=== PATIENT | female | born 1950 | race Caucasian/White ===

== ENCOUNTER 2019-05-10 11:01 | Inpatient (IN) ==
[~2019-05-10 11:01] MED LIST: ASPIRIN 325 MG TABLET PO ONE; DIAZEPAM 5 MG TABLET PO ONE; MAGNESIUM SULF RIDER 2 GM in PREMIX 1 EACH IV PRN; POTASSIUM CHLORIDE RIDER 10 MEQ in PREMIX 1 EACH IV PRN; diphenhydrAMINE CAP 25 MG CAPSULE PO ONE
[2019-05-10] MEDS: SODIUM CHLORIDE 0.9% 1,000 ML IV SCH ×3 (11:41→22:32)
[2019-05-10 11:59] LABS: Basophils # 0.1 10*3/uL (0.0-0.2); Basophils % 0.9 % (0.0-0.8); Eosinophils # 0.3 10*3/uL (0.0-0.87); Eosinophils % 4.4 % (0.00-10.9); Hematocrit 39.6 VOL% (35.7-47.0); Hemoglobin 12.7 GM/DL (12.0-16.0); Immature Granulocytes % 0.5 %; Immature Granulocytes Absolute 0.04 #; Lymphocytes # 2.4 10*3/uL (1.4-4.0); Lymphocytes % 30.4 % (21.3-54.2); Mean Corpuscular HGB Conc 32.1 GM/DL (32-36); Mean Corpuscular Volume 86.5 FL (87-102); Mean Platelet Volume 11.9 FL (9.6-12.0); Monocytes % 6.5 % (1.7-12.7); Neutrophils % 57.3 % (38.7-73.9); Platelet Count 190 T/CUMM (130-400); Red Blood Count 4.58 MC/CUMM (3.8-5.5); Red Cell Distribution Width 13.7 % (9.3-17.3); White Blood Count 7.8 T/CUMM (4-12)
[2019-05-10 12:06] LABS: INR 0.9; PT Patient Result 10.2 SECS (9.6-12.2); Partial Thromboplastin Time 25.7 SECS (20.8-36.0)
[2019-05-10] MEDS ORDERED: ASPIRIN 325 MG TABLET ONE (12:07)
[2019-05-10] MEDS ORDERED: DIAZEPAM 5 MG TABLET ONE (12:07)
[2019-05-10] MEDS ORDERED: diphenhydrAMINE CAP 25 MG CAPSULE ONE (12:08)
[2019-05-10] MEDS ORDERED: NITROGLYCERIN DRIP 50 MG/250 ML BOTTLE IV ONE ×2 (12:12→13:03)
[2019-05-10] MEDS ORDERED: LIDOCAINE 1% 20 ML VIAL ONE (12:12)
[2019-05-10] MEDS ORDERED: VERAPAMIL 5 MG/2 ML VIAL ONE (12:13)
[2019-05-10] MEDS ORDERED: MIDAZOLAM 2 MG/2 ML VIAL ONE (12:39)
[2019-05-10] MEDS ORDERED: fentaNYL 100 MCG/2 ML VIAL ONE (12:39)
[2019-05-10 12:59] LABS: Alanine Aminotransferase 45 U/L (13-56); Albumin 3.5 G/DL (3.4-5.0); Alkaline Phosphatase 79 U/L (45-117); Aspartate Amino Transferase 37 U/L (0-37); Bilirubin,Total < 0.39 MG/DL (0.2-1.0); Blood Urea Nitrogen 14 MG/DL (7-18); Calcium 9.1 MG/DL (8.5-10.1); Estimated Glom Filtration Rate 64 ML/MIN; Glucose 330 MG/DL (74-106); Osmolality,Calculated 288.7 MOS/KG (273-304); Total Protein 7.6 G/DL (6.4-8.3)
[2019-05-10] MEDS ORDERED: DEXTROSE 50% 25 GM/50 ML VIAL IV PRN (13:25)
[2019-05-10] MEDS ORDERED: GLUCAGON 1 MG VIAL IM PRN (13:25)
[2019-05-10] MEDS ORDERED: INFLUENZA VIRUS VACCINE 0.5 ML SYRINGE IM ONE (16:06)
[2019-05-10] MEDS ORDERED: MAGNESIUM HYDROXIDE SUSP 30 ML UDCUP PO PRN (16:38)
[2019-05-10] MEDS ORDERED: diphenhydrAMINE CAP 25 MG CAPSULE PO PRN (16:38)
[2019-05-10] MEDS ORDERED: NITROGLYCERIN SL 0.4 MG TABLET SL PRN (16:38)
[2019-05-10] MEDS ORDERED: ACETAMINOPHEN 325 MG TABLET PO PRN (16:45)
[2019-05-10] MEDS: INSULIN REGULAR 100 UNIT/ML SUBCUT SCH ×2 (17:50→21:01)
[2019-05-10] MEDS: CEFUROXIME 250 MG TABLET PO SCH (20:58)
[2019-05-10] MEDS: GLIMEPIRIDE 4 MG TABLET PO SCH (20:59)
[2019-05-10] MEDS: GABAPENTIN 300 MG CAPSULE PO SCH (20:59)
[2019-05-10] MEDS ORDERED: INSULIN NPH 100 UNIT/ML SUBCUT SCH (21:00)
[2019-05-11] MEDS: SODIUM CHLORIDE 0.9% 1,000 ML IV SCH ×5 (03:15→22:30)
[2019-05-11 05:41] LABS: Basophils # 0.1 10*3/uL (0.0-0.2); Basophils % 1.2 % (0.0-0.8); Eosinophils # 0.4 10*3/uL (0.0-0.87); Eosinophils % 4.8 % (0.00-10.9); Hematocrit 31.4 VOL% (35.7-47.0); Hemoglobin 10.1 GM/DL (12.0-16.0); Immature Granulocytes % 0.7 %; Immature Granulocytes Absolute 0.06 #; Lymphocytes # 2.6 10*3/uL (1.4-4.0); Lymphocytes % 30.8 % (21.3-54.2); Mean Corpuscular HGB Conc 32.2 GM/DL (32-36); Mean Corpuscular Volume 87.2 FL (87-102); Monocytes % 7.7 % (1.7-12.7); Neutrophils % 54.8 % (38.7-73.9); Platelet Count 178 T/CUMM (130-400); Red Cell Distribution Width 13.9 % (9.3-17.3); White Blood Count 8.5 T/CUMM (4-12)
[2019-05-11 06:03] LABS: Calcium 7.5 MG/DL (8.5-10.1); Osmolality,Calculated 285.1 MOS/KG (273-304)
[2019-05-11] MEDS: INSULIN REGULAR 100 UNIT/ML SUBCUT SCH ×4 (08:00→20:56)
[2019-05-11 08:43] LABS: Risk Ratio 5.75; VLDL CHOLESTEROL 40.6 MG/DL
[2019-05-11] MEDS ORDERED: CALCIUM (CARBONATE)/VITAMIN D 600 MG-400 UNIT TABLET PO SCH (09:00)
[2019-05-11] MEDS ORDERED: INSULIN NPH 100 UNIT/ML SUBCUT SCH (09:00)
[2019-05-11] MEDS ORDERED: SIMVASTATIN 10 MG TABLET PO SCH (09:00)
[2019-05-11] MEDS: METOPROLOL SUCCINATE XL 25 MG TABLET PO SCH (09:19)
[2019-05-11] MEDS: GABAPENTIN 300 MG CAPSULE PO SCH ×3 (09:19→20:56)
[2019-05-11] MEDS: LORATADINE 10 MG TABLET PO SCH (09:20)
[2019-05-11] MEDS: POTASSIUM CHLORIDE 10 MEQ TABLET PO SCH (09:20)
[2019-05-11] MEDS: MAGNESIUM OXIDE 400 MG TABLET PO SCH (09:20)
[2019-05-11] MEDS: SERTRALINE 50 MG TABLET PO SCH (09:20)
[2019-05-11] MEDS: CEFUROXIME 250 MG TABLET PO SCH ×2 (09:20→20:56)
[2019-05-11] MEDS: ASPIRIN CHEW 81 MG TABLET PO SCH (09:20)
[2019-05-11] MEDS: GLIMEPIRIDE 4 MG TABLET PO SCH ×2 (09:20→20:56)
[2019-05-11] MEDS: amLODIPine 10 MG TABLET PO SCH (09:20)
[2019-05-11] MEDS: FUROSEMIDE 40 MG TABLET PO SCH (09:21)
[2019-05-11 13:25] LABS: Hemoglobin 11.1 GM/DL (12.0-16.0)
[2019-05-11] MEDS ORDERED: THROMBIN TOPICAL (RECOMBINANT) 5,000 UNIT VIAL TOP ONE ×2 (14:39→14:40)
[2019-05-11] MEDS: ATORVASTATIN 80 MG TABLET PO SCH (20:55)
[2019-05-11] MEDS: INSULIN NPH 100 UNIT/ML SUBCUT SCH (20:56)
[2019-05-11] MEDS: CALCIUM (CARBONATE)/VITAMIN D 600 MG-400 UNIT TABLET PO SCH (21:05)
[2019-05-12 04:39] LABS: Calcium 9.7 MG/DL (8.5-10.1); Osmolality,Calculated 284.1 MOS/KG (273-304)
[2019-05-12] MEDS ORDERED: DEXTROSE 50% 25 GM/50 ML VIAL IV PRN (06:10)
[2019-05-12] MEDS ORDERED: GLUCAGON 1 MG VIAL IM PRN (06:10)
[2019-05-12 06:51] LABS: Basophils # 0.1 10*3/uL (0.0-0.2); Basophils % 0.7 % (0.0-0.8); Eosinophils # 0.5 10*3/uL (0.0-0.87); Eosinophils % 4.3 % (0.00-10.9); Hematocrit 30.3 VOL% (35.7-47.0); Hemoglobin 9.5 GM/DL (12.0-16.0); Immature Granulocytes % 0.8 %; Immature Granulocytes Absolute 0.09 #; Lymphocytes # 3.1 10*3/uL (1.4-4.0); Lymphocytes % 27.8 % (21.3-54.2); Mean Corpuscular HGB Conc 31.4 GM/DL (32-36); Mean Corpuscular Volume 87.3 FL (87-102); Monocytes % 9.3 % (1.7-12.7); Neutrophils % 57.1 % (38.7-73.9); Platelet Count 189 T/CUMM (130-400); Red Blood Count 3.47 MC/CUMM (3.8-5.5); Red Cell Distribution Width 14.2 % (9.3-17.3)
[2019-05-12 06:53] LABS: ABG Base Excess -0.7 MMOL/L (-2.5-2.5); ABG HCO3 23.8 MMOL/L (20-26); ABG Oxygen Saturation 95.3 % (95-100); ABG PCO2 36.2 MM HG (35-48); ABG PH 7.418 (7.35-7.45); ABG PO2 69.3 MM HG (80-95); ABG TCO2 21.3 MMOL/L (23-27); Allen Test Positive; Pt O2 Delivery Device Room Air
[2019-05-12 07:17] LABS: Alanine Aminotransferase 34 U/L (13-56); Albumin 2.6 G/DL (3.4-5.0); Alkaline Phosphatase 61 U/L (45-117); Aspartate Amino Transferase 36 U/L (0-37); Bilirubin,Total < 0.39 MG/DL (0.2-1.0); Blood Urea Nitrogen 11 MG/DL (7-18); Calcium 8.7 MG/DL (8.5-10.1); Estimated Glom Filtration Rate 87 ML/MIN; Glucose 158 MG/DL (74-106); Osmolality,Calculated 278.5 MOS/KG (273-304); Total Protein 5.9 G/DL (6.4-8.3)
[2019-05-12] MEDS: INSULIN NPH 100 UNIT/ML SUBCUT SCH ×2 (09:42→21:58)
[2019-05-12] MEDS: INSULIN REGULAR 100 UNIT/ML SUBCUT SCH ×4 (09:46→21:58)
[2019-05-12] MEDS: GABAPENTIN 300 MG CAPSULE PO SCH ×3 (09:47→21:45)
[2019-05-12] MEDS: amLODIPine 10 MG TABLET PO SCH (09:47)
[2019-05-12] MEDS: METOPROLOL SUCCINATE XL 25 MG TABLET PO SCH (09:47)
[2019-05-12] MEDS: FUROSEMIDE 40 MG TABLET PO SCH (09:47)
[2019-05-12] MEDS: ASPIRIN CHEW 81 MG TABLET PO SCH (09:48)
[2019-05-12] MEDS: SERTRALINE 50 MG TABLET PO SCH (09:48)
[2019-05-12] MEDS: POTASSIUM CHLORIDE 10 MEQ TABLET PO SCH (09:48)
[2019-05-12] MEDS: CEFUROXIME 250 MG TABLET PO SCH ×2 (09:50→21:49)
[2019-05-12] MEDS: LORATADINE 10 MG TABLET PO SCH (09:50)
[2019-05-12] MEDS: MAGNESIUM OXIDE 400 MG TABLET PO SCH (09:50)
[2019-05-12] MEDS: GLIMEPIRIDE 4 MG TABLET PO SCH ×2 (09:50→21:44)
[2019-05-12] MEDS: CALCIUM (CARBONATE)/VITAMIN D 600 MG-400 UNIT TABLET PO SCH ×2 (09:53→21:50)
[2019-05-12] MEDS: CHLORHEXIDINE 4% SOLN 118 ML BOTTLE TOP SCH ×4 (10:52→21:51)
[2019-05-12] MEDS: SODIUM CHLORIDE 0.9% 1,000 ML IV SCH ×2 (11:46→11:47)
[2019-05-12] MEDS: CHLORHEXIDINE 0.12% ORAL RINSE 60 ML BOTTLE SWISH/SPIT SCH ×2 (11:55→21:52)
[2019-05-12 15:36] LABS: Apearance,Urine CLEAR (Clear); Bilirubin,Urine Negative (Negative); Blood, Urine Negative (Negative); Glucose,Urine (UA) >=500 mg/dL (Negative); Ketones,Urine Negative (Negative); Nitrite,Urine Negative (Negative); Protein,Urine Negative; RBC,Urine 3 /HPF (0-4); Squamous Epithelial Cell,Urine Occasional /HPF (0-10); Urine Color Straw (Yellow); Urine Specific Gravity 1.008 (1.001-1.035); Urine Urobilinogen < 2.0 EU/DL (0.2-1.0); WBC,Urine 48 /HPF (0-6)
[2019-05-12] MEDS: ATORVASTATIN 80 MG TABLET PO SCH (21:45)
[2019-05-13] MEDS ORDERED: PAPAVERINE 60 MG/2 ML VIAL ONE (04:22)
[2019-05-13] MEDS ORDERED: VANCOMYCIN 1,000 MG VIAL ONE (04:23)
[2019-05-13] MEDS ORDERED: DIAZEPAM 5 MG TABLET PO ONE (05:30)
[2019-05-13] MEDS ORDERED: ALBUTEROL 2.5 MG/3 ML NEB RESP TX ONE (05:30)
[2019-05-13] MEDS ORDERED: FAMOTIDINE 20 MG TABLET PO ONE (05:30)
[2019-05-13] MEDS ORDERED: LACTATED RINGERS 1,000 ML IV SCH (05:30)
[2019-05-13] MEDS ORDERED: CALCIUM CHLORIDE 1,000 MG/10 ML VIAL IV ONE (05:53)
[2019-05-13] MEDS ORDERED: MIDAZOLAM 10 MG/2 ML VIAL ONE (05:53)
[2019-05-13] MEDS ORDERED: LIDOCAINE 2% 5 ML VIAL ONE ×2 (05:53→12:06)
[2019-05-13] MEDS ORDERED: SUFentanil 250 MCG/5 ML AMP ONE (05:53)
[2019-05-13] MEDS ORDERED: HEPARIN/NACL 0.9% 2 UNITS/ML 500 ML IV ONE (05:53)
[2019-05-13] MEDS ORDERED: AMINOCAPROIC ACID 5,000 MG/20 ML VIAL ONE (05:54)
[2019-05-13] MEDS ORDERED: ETOMIDATE 40 MG/20 ML VIAL IV ONE (05:54)
[2019-05-13] MEDS ORDERED: VECURONIUM 10 MG VIAL IV ONE (05:54)
[2019-05-13] MEDS ORDERED: SODIUM CHLORIDE 0.9% 250 ML IV ONE (05:54)
[2019-05-13] MEDS ORDERED: NITROGLYCERIN DRIP 50 MG/250 ML BOTTLE IV ONE (05:54)
[2019-05-13] MEDS ORDERED: ePHEDrine 50 MG/ML AMP ONE (05:54)
[2019-05-13] MEDS ORDERED: SODIUM CHLORIDE 0.9% 1,000 ML IV ONE (05:54)
[2019-05-13] MEDS ORDERED: LACTATED RINGERS 1,000 ML IV ONE (05:54)
[2019-05-13] MEDS ORDERED: CEFUROXIME INJ 1,500 MG in SODIUM CHLORIDE 0.9% 100 ML IV ONE (06:00)
[2019-05-13] MEDS: SODIUM CHLORIDE 0.9% 1,000 ML IV SCH (07:00)
[2019-05-13] MEDS: INSULIN REGULAR 100 UNIT/ML SUBCUT SCH ×2 (07:30→11:30)
[2019-05-13 07:53] LABS: ABG Base Excess -1.5 MMOL/L (-2.5-2.5); ABG HCO3 23.2 MMOL/L (20-26); ABG PH 7.393 (7.35-7.45); ABG TCO2 21.1 MMOL/L (23-27); Glucose Heart Surgery 249 MG/DL (74-106); Hematocrit Heart Surgery 30.9 PERCENT (37-47); Ionized Calcium Arterial 1.17 MMOL/L (1.21-1.46); PH Patient Temp Arterial 7.393; Patient Temperature 37 CELCIUS; Potassium Heart/CVR 3.7 MMOL/L (3.5-5.1); Sodium Heart/CVR 138 MMOL/L (135-145)
[2019-05-13] MEDS ORDERED: VANCOMYCIN 500 MG VIAL ONE (09:09)
[2019-05-13] MEDS ORDERED: NITROPRUSSIDE 50 MG/2 ML VIAL ONE (09:34)
[2019-05-13] MEDS ORDERED: CALCIUM CHLORIDE 1,000 MG/10 ML SYRINGE IV ONE (09:35)
[2019-05-13] MEDS ORDERED: SODIUM BICARBONATE 50 MEQ/50 ML VIAL IV ONE ×2 (09:35→12:06)
[2019-05-13] MEDS ORDERED: POTASSIUM CHLORIDE RIDER 100 ML IV ONE (09:35)
[2019-05-13] MEDS ORDERED: PHENYLEPHRINE DRIP 40 MG/250 ML PREMIX IV ONE (09:35)
[2019-05-13 10:01] LABS: Apearance,Urine CLEAR (Clear); Bilirubin,Urine Negative (Negative); Blood, Urine Small mg/dL (Negative); Glucose,Urine (UA) 50 mg/dL (Negative); Hyaline Casts,Urine 1 /LPF (0-3); Ketones,Urine Negative (Negative); Mucus,Urine Occasional /LPF (Occasional); Nitrite,Urine Negative (Negative); Protein,Urine Negative; RBC,Urine 1 /HPF (0-4); Squamous Epithelial Cell,Urine Occasional /HPF (0-10); Urine Color Yellow (Yellow); Urine Specific Gravity 1.011 (1.001-1.035); Urine Urobilinogen < 2.0 EU/DL (0.2-1.0); WBC,Urine <1 /HPF (0-6)
[2019-05-13] MEDS: GLIMEPIRIDE 4 MG TABLET PO SCH (10:18)
[2019-05-13] MEDS: CALCIUM (CARBONATE)/VITAMIN D 600 MG-400 UNIT TABLET PO SCH (10:19)
[2019-05-13] MEDS: CHLORHEXIDINE 4% SOLN 118 ML BOTTLE TOP SCH (10:19)
[2019-05-13] MEDS: ASPIRIN CHEW 81 MG TABLET PO SCH (10:19)
[2019-05-13] MEDS: CEFUROXIME 250 MG TABLET PO SCH (10:19)
[2019-05-13] MEDS: POTASSIUM CHLORIDE 10 MEQ TABLET PO SCH (10:19)
[2019-05-13] MEDS: LORATADINE 10 MG TABLET PO SCH (10:19)
[2019-05-13] MEDS: INSULIN NPH 100 UNIT/ML SUBCUT SCH (10:19)
[2019-05-13] MEDS: CHLORHEXIDINE 0.12% ORAL RINSE 60 ML BOTTLE SWISH/SPIT SCH ×2 (10:20→22:18)
[2019-05-13] MEDS: amLODIPine 10 MG TABLET PO SCH (10:20)
[2019-05-13] MEDS: FUROSEMIDE 40 MG TABLET PO SCH (10:20)
[2019-05-13] MEDS: GABAPENTIN 300 MG CAPSULE PO SCH (10:20)
[2019-05-13] MEDS: METOPROLOL SUCCINATE XL 25 MG TABLET PO SCH (10:20)
[2019-05-13] MEDS: MAGNESIUM OXIDE 400 MG TABLET PO SCH (10:20)
[2019-05-13] MEDS: SERTRALINE 50 MG TABLET PO SCH (10:20)
[2019-05-13 10:21] LABS: Hematocrit Heart Surgery 36.9 PERCENT (37-47); PCO2 Patient Temp Venous 39.3 MM HG; PH Patient Temp Venous 7.388; PO2 Patient Temp Venous 40.1 MM HG; Potassium Heart/CVR 4.3 MMOL/L (3.5-5.1); VBG Base Excess -1.1 MEQ/L (0-4); VBG HCO3 23.1 MEQ/L (24-28); VBG Oxygen Saturation 74.7 %; VBG PCO2 39.3 MMHG (41-51); VBG PH 7.388; VBG PO2 40.1 MMHG (17-40)
[2019-05-13] MEDS ORDERED: PHENYLEPHRINE DRIP 20 MG/250 ML PREMIX IV ONE (10:28)
[2019-05-13] MEDS ORDERED: diphenhydrAMINE 50 MG/1 ML VIAL ONE (10:28)
[2019-05-13] MEDS ORDERED: FAMOTIDINE 20 MG/2 ML VIAL IV ONE (10:29)
[2019-05-13 10:36] LABS: PCO2 Patient Temp Venous 28.9 MM HG; PH Patient Temp Venous 7.489; PO2 Patient Temp Venous 27.5 MM HG; Potassium Heart/CVR 4.1 MMOL/L (3.5-5.1); VBG Base Excess -0.8 MEQ/L (0-4); VBG HCO3 23.5 MEQ/L (24-28); VBG Oxygen Saturation 72.4 %; VBG PCO2 35.1 MMHG (41-51); VBG PH 7.429; VBG PO2 36.4 MMHG (17-40)
[2019-05-13 10:37] LABS: Hematocrit Heart Surgery 16.7 PERCENT (37-47); Hemoglobin Heart Surgery 5.3 G/DL (12.0-16.0)
[2019-05-13 11:10] LABS: Hemoglobin Heart Surgery 8.6 G/DL (12.0-16.0); PCO2 Patient Temp Venous 36.1 MM HG; PH Patient Temp Venous 7.365; PO2 Patient Temp Venous 38.2 MM HG; Potassium Heart/CVR 4.7 MMOL/L (3.5-5.1); VBG Base Excess -4.7 MEQ/L (0-4); VBG HCO3 20.4 MEQ/L (24-28); VBG PCO2 37.7 MMHG (41-51); VBG PH 7.351
[2019-05-13] MEDS ORDERED: ALBUMIN 25% 25 GM/100 ML VIAL IV ONE (12:06)
[2019-05-13] MEDS ORDERED: DEXTROSE 5% KCL 20 MEQ 20 MEQ/1,000 ML BAG IV ONE (12:06)
[2019-05-13] MEDS ORDERED: MANNITOL 100 GM/500 ML BAG IV ONE (12:06)
[2019-05-13] MEDS ORDERED: PROTAMINE SULFATE 250 MG/25 ML VIAL IV ONE (12:06)
[2019-05-13] MEDS ORDERED: MAGNESIUM SULFATE 5 GM/10 ML VIAL IV ONE (12:06)
[2019-05-13] MEDS ORDERED: methylPREDNISolone SOD SUC 1,000 MG/8 ML VIAL ONE (12:07)
[2019-05-13] MEDS ORDERED: PROTAMINE SULFATE 50 MG/5 ML VIAL IV ONE (12:07)
[2019-05-13] MEDS ORDERED: HEPARIN 10,000 UNIT/10 ML VIAL ONE (12:07)
[2019-05-13] MEDS ORDERED: FUROSEMIDE 20 MG/2 ML VIAL ONE (12:07)
[2019-05-13 12:09] LABS: ABG Base Excess -3.5 MMOL/L (-2.5-2.5); ABG HCO3 21.8 MMOL/L (20-26); ABG Oxygen Saturation 98.1 % (95-100); ABG PCO2 40.4 MM HG (35-48); ABG PO2 135.1 MM HG (80-95); Glucose Heart Surgery 393 MG/DL (74-106); Hemoglobin Heart Surgery 9.8 G/DL (12.0-16.0); Ionized Calcium Arterial 1.19 MMOL/L (1.21-1.46); Potassium Heart/CVR 3.2 MMOL/L (3.5-5.1); Sodium Heart/CVR 134 MMOL/L (135-145)
[2019-05-13] MEDS ORDERED: DOBUTamine 500 MG/250 ML PREMIX IV ONE (12:57)
[2019-05-13 13:03] LABS: PCO2 Patient Temp Arterial 40.4 MMHG; PO2 Patient Temp Arterial 135.1 MM HG; Patient Temperature 37 CELCIUS
[2019-05-13] MEDS: PHENYLEPHRINE DRIP 40 MG/250 ML PREMIX IV PRN ×2 (13:20→23:08)
[2019-05-13] MEDS ORDERED: MIDAZOLAM 2 MG/2 ML VIAL IV PRN (13:27)
[2019-05-13] MEDS ORDERED: MORPHINE 10 MG/1 ML VIAL IV PRN (13:27)
[2019-05-13] MEDS ORDERED: VECURONIUM 10 MG VIAL IV PRN ×2 (13:27)
[2019-05-13] MEDS ORDERED: ACETAMINOPHEN 650 MG SUPP RECTAL PRN (13:27)
[2019-05-13] MEDS ORDERED: POTASSIUM CHLORIDE RIDER 10 MEQ in PREMIX 1 EACH IV PRN (13:27)
[2019-05-13] MEDS ORDERED: DEXTROSE 10% 250 ML BAG IV PRN ×2 (13:27)
[2019-05-13] MEDS ORDERED: MIDAZOLAM 10 MG/2 ML VIAL IV PRN (13:27)
[2019-05-13] MEDS ORDERED: MAGNESIUM SULF RIDER 4 GM in PREMIX 1 EACH IV PRN (13:27)
[2019-05-13] MEDS ORDERED: MAGNESIUM SULF RIDER 2 GM in PREMIX 1 EACH IV PRN (13:27)
[2019-05-13] MEDS ORDERED: CALCIUM CHLORIDE 1,000 MG/10 ML SYRINGE IV PRN (13:27)
[2019-05-13] MEDS ORDERED: NITROPRUSSIDE 100 MG in DEXTROSE 5% 250 ML IV PRN (13:27)
[2019-05-13] MEDS ORDERED: ONDANSETRON 4 MG/2 ML VIAL IV PRN (13:27)
[2019-05-13] MEDS ORDERED: INSULIN REGULAR 100 UNIT/ML IV ONE (13:27)
[2019-05-13] MEDS ORDERED: SEVOFLURANE 1 UNIT/15 MINUTE INH ONE (13:30)
[2019-05-13] MEDS ORDERED: SODIUM CHLORIDE 0.45% 1,000 ML IV SCH ×2 (13:30)
[2019-05-13] MEDS ORDERED: SODIUM CHLORIDE 0.9% 100 ML IV ONE (13:30)
[2019-05-13] MEDS ORDERED: ESMOLOL 100 MG/10 ML VIAL IV ONE (13:30)
[2019-05-13 13:39] LABS: ABG Base Excess -0.8 MMOL/L (-2.5-2.5); ABG HCO3 24.7 MMOL/L (20-26); ABG PCO2 44.8 MM HG (35-48); ABG PO2 64.5 MM HG (80-95); ABG TCO2 26.1 MMOL/L (23-27); Glucose Heart Surgery 315 MG/DL (74-106); Hemoglobin Heart Surgery 10.3 G/DL (12.0-16.0); Potassium Heart/CVR 3.3 MMOL/L (3.5-5.1)
[2019-05-13] MEDS: POTASSIUM CHLORIDE RIDER 20 MEQ in PREMIX 1 EACH IV PRN ×4 (13:40→17:17)
[2019-05-13 13:42] LABS: Basophils # 0.1 10*3/uL (0.0-0.2); Basophils % 0.4 % (0.0-0.8); Eosinophils # 0.2 10*3/uL (0.0-0.87); Eosinophils % 1.2 % (0.00-10.9); Hematocrit 28.9 VOL% (35.7-47.0); Hemoglobin 9.4 GM/DL (12.0-16.0); Immature Granulocytes % 1.5 %; Immature Granulocytes Absolute 0.27 #; Lymphocytes # 2.8 10*3/uL (1.4-4.0); Lymphocytes % 15.5 % (21.3-54.2); Mean Corpuscular HGB Conc 32.5 GM/DL (32-36); Mean Platelet Volume 11.4 FL (9.6-12.0); Monocytes % 9.3 % (1.7-12.7); Neutrophils % 72.1 % (38.7-73.9); Platelet Count 191 T/CUMM (130-400); Red Blood Count 3.36 MC/CUMM (3.8-5.5); Red Cell Distribution Width 14.3 % (9.3-17.3); White Blood Count 18.3 T/CUMM (4-12)
[2019-05-13] MEDS ORDERED: DOBUTamine 500 MG/250 ML PREMIX IV PRN (13:48)
[2019-05-13 13:50] LABS: INR 1.1; PT Patient Result 11.7 SECS (9.6-12.2); Partial Thromboplastin Time 25.7 SECS (20.8-36.0)
[2019-05-13] MEDS: KETOROLAC 30 MG/1 ML VIAL IV SCH ×2 (13:50→18:55)
[2019-05-13] MEDS: INSULIN REGULAR DRIP 100 ML IV SCH ×2 (13:55→23:15)
[2019-05-13 14:26] LABS: CKMB % 2.9 %
[2019-05-13 14:36] LABS: Troponin I 9.21 NG/ML (0.00-0.045)
[2019-05-13 14:37] LABS: Albumin 3.3 G/DL (3.4-5.0); Bilirubin,Total 1.1 MG/DL (0.2-1.0); Osmolality,Calculated 305.3 MOS/KG (273-304); Total Protein 5.7 G/DL (6.4-8.3)
[2019-05-13] MEDS: INSULIN REGULAR 100 UNIT/ML IV PRN ×2 (15:09→19:05)
[2019-05-13 15:10] LABS: ABG Base Excess -1.2 MMOL/L (-2.5-2.5); ABG HCO3 23.4 MMOL/L (20-26); ABG Oxygen Saturation 96.4 % (95-100); ABG PH 7.352 (7.35-7.45); ABG PO2 82.2 MM HG (80-95); ABG TCO2 22.5 MMOL/L (23-27); Glucose Heart Surgery 310 MG/DL (74-106); Hematocrit Heart Surgery 29.3 PERCENT (37-47); Hemoglobin Heart Surgery 9.5 G/DL (12.0-16.0); Potassium Heart/CVR 4.4 MMOL/L (3.5-5.1)
[2019-05-13] MEDS: ALBUMIN 5% 12.5 GM in PREMIX 1 EACH IV PRN ×3 (15:20→16:56)
[2019-05-13 16:50] LABS: ABG Base Excess -2.3 MMOL/L (-2.5-2.5); ABG HCO3 22.5 MMOL/L (20-26); ABG Oxygen Saturation 98.2 % (95-100); ABG PCO2 42.1 MM HG (35-48); ABG PH 7.349 (7.35-7.45); ABG PO2 99.1 MM HG (80-95); ABG TCO2 21.5 MMOL/L (23-27); Glucose Heart Surgery 267 MG/DL (74-106); Hematocrit Heart Surgery 27.4 PERCENT (37-47); Hemoglobin Heart Surgery 8.8 G/DL (12.0-16.0); Potassium Heart/CVR 4.1 MMOL/L (3.5-5.1)
[2019-05-13] MEDS: LACTATED RINGERS 250 ML IV PRN ×2 (18:00→18:15)
[2019-05-13] MEDS: MORPHINE 4 MG/1 ML VIAL IV PRN ×2 (18:08→22:06)
[2019-05-13] MEDS ORDERED: FUROSEMIDE 40 MG/4 ML VIAL IV PRN (18:34)
[2019-05-13 18:40] LABS: ABG Base Excess -2.9 MMOL/L (-2.5-2.5); ABG HCO3 21.9 MMOL/L (20-26); ABG Oxygen Saturation 95.5 % (95-100); ABG PCO2 42.4 MM HG (35-48); ABG PH 7.337 (7.35-7.45); ABG PO2 74.9 MM HG (80-95); Glucose Heart Surgery 243 MG/DL (74-106); Hematocrit Heart Surgery 29.4 PERCENT (37-47); Hemoglobin Heart Surgery 9.5 G/DL (12.0-16.0); Potassium Heart/CVR 4.5 MMOL/L (3.5-5.1)
[2019-05-13 21:17] LABS: ABG Base Excess -1.3 MMOL/L (-2.5-2.5); ABG HCO3 23.3 MMOL/L (20-26); ABG Oxygen Saturation 96.7 % (95-100); ABG PCO2 42.4 MM HG (35-48); ABG PH 7.363 (7.35-7.45); ABG PO2 83.3 MM HG (80-95); ABG TCO2 21.4 MMOL/L (23-27); Glucose Heart Surgery 192 MG/DL (74-106); Hematocrit Heart Surgery 37.1 PERCENT (37-47); Hemoglobin Heart Surgery 12.1 G/DL (12.0-16.0)
[2019-05-13 21:51] LABS: CKMB % 3.1 %
[2019-05-13 21:58] LABS: ABG Base Excess -1.1 MMOL/L (-2.5-2.5); ABG HCO3 23.5 MMOL/L (20-26); ABG PCO2 37.8 MM HG (35-48); ABG PH 7.399 (7.35-7.45); ABG PO2 91.2 MM HG (80-95); ABG TCO2 20.7 MMOL/L (23-27); Glucose Heart Surgery 172 MG/DL (74-106); Hematocrit Heart Surgery 36.8 PERCENT (37-47); Hemoglobin Heart Surgery 11.9 G/DL (12.0-16.0); Potassium Heart/CVR 3.7 MMOL/L (3.5-5.1)
[2019-05-13 21:58] LABS: Troponin I 11.5 NG/ML (0.00-0.045)
[2019-05-13] MEDS: CEFUROXIME INJ 1,500 MG in SYRINGE 1 EACH IV SCH (22:18)
[2019-05-14 00:55] LABS: ABG HCO3 24.4 MMOL/L (20-26); ABG Oxygen Saturation 96.8 % (95-100); ABG PCO2 36.6 MM HG (35-48); ABG PH 7.426 (7.35-7.45); ABG PO2 76.3 MM HG (80-95); ABG TCO2 21.3 MMOL/L (23-27); Glucose Heart Surgery 145 MG/DL (74-106); Hematocrit Heart Surgery 36.8 PERCENT (37-47); Potassium Heart/CVR 3.7 MMOL/L (3.5-5.1)
[2019-05-14] MEDS: KETOROLAC 30 MG/1 ML VIAL IV SCH ×5 (01:04→22:28)
[2019-05-14] MEDS: POTASSIUM CHLORIDE RIDER 20 MEQ in PREMIX 1 EACH IV PRN (01:04)
[2019-05-14 03:57] LABS: ABG Base Excess -0.1 MMOL/L (-2.5-2.5); ABG HCO3 24.3 MMOL/L (20-26); ABG Oxygen Saturation 94.7 % (95-100); ABG PCO2 36.9 MM HG (35-48); ABG PH 7.422 (7.35-7.45); ABG PO2 65.8 MM HG (80-95); ABG TCO2 21.4 MMOL/L (23-27); Glucose Heart Surgery 152 MG/DL (74-106); Hematocrit Heart Surgery 35.6 PERCENT (37-47); Hemoglobin Heart Surgery 11.6 G/DL (12.0-16.0)
[2019-05-14 04:02] LABS: Basophils # 0.1 10*3/uL (0.0-0.2); Basophils % 0.4 % (0.0-0.8); Hematocrit 33.3 VOL% (35.7-47.0); Hemoglobin 11.3 GM/DL (12.0-16.0); Immature Granulocytes % 0.7 %; Immature Granulocytes Absolute 0.11 #; Lymphocytes # 1.6 10*3/uL (1.4-4.0); Mean Corpuscular HGB Conc 33.9 GM/DL (32-36); Mean Corpuscular Volume 84.9 FL (87-102); Mean Platelet Volume 11.6 FL (9.6-12.0); Monocytes % 6.8 % (1.7-12.7); Neutrophils % 82.1 % (38.7-73.9); Platelet Count 118 T/CUMM (130-400); Red Blood Count 3.92 MC/CUMM (3.8-5.5); Red Cell Distribution Width 14.5 % (9.3-17.3)
[2019-05-14 05:47] LABS: Calcium 7.5 MG/DL (8.5-10.1); Osmolality,Calculated 286.8 MOS/KG (273-304)
[2019-05-14 07:51] LABS: CKMB % 3.3 %
[2019-05-14] MEDS ORDERED: INSULIN REGULAR 100 UNIT/ML SUBCUT SCH (08:00)
[2019-05-14] MEDS: CEFUROXIME INJ 1,500 MG in SYRINGE 1 EACH IV SCH (08:25)
[2019-05-14] MEDS: CHLORHEXIDINE 0.12% ORAL RINSE 60 ML BOTTLE SWISH/SPIT SCH ×2 (08:25→21:14)
[2019-05-14] MEDS ORDERED: FUROSEMIDE 40 MG/4 ML VIAL ONE (08:32)
[2019-05-14] MEDS ORDERED: CALCIUM CHLORIDE 1,000 MG/10 ML SYRINGE IV ONE (09:01)
[2019-05-14] MEDS ORDERED: PHENYLEPHRINE DRIP 40 MG/250 ML PREMIX IV ONE (09:01)
[2019-05-14] MEDS ORDERED: NITROPRUSSIDE 50 MG/2 ML VIAL ONE (09:01)
[2019-05-14] MEDS ORDERED: SODIUM BICARBONATE 50 MEQ/50 ML VIAL IV ONE (09:01)
[2019-05-14] MEDS ORDERED: POTASSIUM CHLORIDE RIDER 100 ML IV ONE (09:02)
[2019-05-14] MEDS ORDERED: ALBUMIN 5% 12.5 GM/250 ML VIAL IV ONE ×2 (09:02)
[2019-05-14] MEDS ORDERED: FUROSEMIDE 40 MG/4 ML VIAL IV ONE (10:00)
[2019-05-14] MEDS ORDERED: SODIUM CHLOR 0.45% KCL 20 MEQ 20 MEQ/1,000 ML BAG IV SCH (10:26)
[2019-05-14] MEDS ORDERED: ALUMINUM/MAGNES/SIMETH MAX STR 30 ML UDCUP PO PRN (10:26)
[2019-05-14] MEDS ORDERED: ACETAMINOPHEN 325 MG TABLET PO PRN (10:26)
[2019-05-14] MEDS ORDERED: ONDANSETRON 4 MG/2 ML VIAL IV PRN (10:26)
[2019-05-14] MEDS ORDERED: MAGNESIUM SULF RIDER 4 GM in PREMIX 1 EACH IV PRN (10:26)
[2019-05-14] MEDS ORDERED: DEXTROSE 10% 250 ML BAG IV PRN ×2 (10:26→19:55)
[2019-05-14] MEDS ORDERED: MAGNESIUM SULF RIDER 2 GM in PREMIX 1 EACH IV PRN (10:26)
[2019-05-14] MEDS ORDERED: GLUCAGON 1 MG VIAL IM PRN ×3 (10:26→19:55)
[2019-05-14] MEDS ORDERED: DEXTROSE 50% 25 GM/50 ML VIAL IV PRN (10:26)
[2019-05-14] MEDS: ASPIRIN EC 81 MG TABLET PO SCH (13:23)
[2019-05-14] MEDS: oxyCODONE/ACETAMINOPHEN 5-325 MG TABLET PO PRN (14:22)
[2019-05-14] MEDS: GABAPENTIN 300 MG CAPSULE PO SCH ×2 (14:22→21:14)
[2019-05-14] MEDS ORDERED: INSULIN REGULAR 100 UNIT/ML SUBCUT ONE (15:54)
[2019-05-14] MEDS ORDERED: LOVASTATIN 20 MG TABLET PO SCH (17:00)
[2019-05-14] MEDS: metFORMIN 500 MG TABLET PO SCH (18:59)
[2019-05-14] MEDS: GLIMEPIRIDE 4 MG TABLET PO SCH (18:59)
[2019-05-14] MEDS: INSULIN NPH 100 UNIT/ML SUBCUT SCH (21:02)
[2019-05-14] MEDS: INSULIN REGULAR 100 UNIT/ML SUBCUT SCH ×2 (21:08→23:26)
[2019-05-14] MEDS: ZALEPLON 5 MG CAPSULE PO PRN (21:14)
[2019-05-14] MEDS: SERTRALINE 25 MG TABLET PO SCH (21:14)
[2019-05-15] MEDS: KETOROLAC 30 MG/1 ML VIAL IV SCH ×4 (04:28→23:25)
[2019-05-15 04:30] LABS: Basophils % 0.2 % (0.0-0.8); Hematocrit 30.5 VOL% (35.7-47.0); Hemoglobin 9.9 GM/DL (12.0-16.0); Immature Granulocytes % 1.6 %; Immature Granulocytes Absolute 0.29 #; Mean Corpuscular HGB Conc 32.5 GM/DL (32-36); Mean Corpuscular Volume 89.2 FL (87-102); Mean Platelet Volume 12.3 FL (9.6-12.0); Monocytes % 10.8 % (1.7-12.7); Neutrophils % 76.4 % (38.7-73.9); Platelet Count 135 T/CUMM (130-400); Red Blood Count 3.42 MC/CUMM (3.8-5.5); Red Cell Distribution Width 15.4 % (9.3-17.3); White Blood Count 17.8 T/CUMM (4-12)
[2019-05-15 05:15] LABS: Albumin 2.9 G/DL (3.4-5.0); Bilirubin,Direct 0.2 MG/DL (0.0-0.20); Bilirubin,Indirect 0.5 MG/DL (0.0-1.0); Bilirubin,Total 0.7 MG/DL (0.2-1.0); CKMB % 1.6 %; Calcium 7.7 MG/DL (8.5-10.1); Osmolality,Calculated 293.4 MOS/KG (273-304); Total Protein 5.7 G/DL (6.4-8.3)
[2019-05-15 05:17] LABS: Troponin I 5.93 NG/ML (0.00-0.045)
[2019-05-15] MEDS ORDERED: FUROSEMIDE 40 MG/4 ML VIAL IV ONE (06:00)
[2019-05-15] MEDS: CHOLECALCIFEROL 1,000 UNIT TABLET PO SCH (08:23)
[2019-05-15] MEDS: INSULIN NPH 100 UNIT/ML SUBCUT SCH ×2 (08:23→21:03)
[2019-05-15] MEDS: metFORMIN 500 MG TABLET PO SCH ×2 (08:23→16:53)
[2019-05-15] MEDS: METOPROLOL SUCCINATE XL 25 MG TABLET PO SCH (08:23)
[2019-05-15] MEDS: ROSUVASTATIN 20 MG TABLET PO SCH (08:23)
[2019-05-15] MEDS: MAGNESIUM OXIDE 400 MG TABLET PO SCH (08:24)
[2019-05-15] MEDS: FERROUS SULFATE 325 MG TABLET PO SCH (08:24)
[2019-05-15] MEDS: GABAPENTIN 300 MG CAPSULE PO SCH ×3 (08:24→21:00)
[2019-05-15] MEDS: amLODIPine 10 MG TABLET PO SCH (08:24)
[2019-05-15] MEDS: ASPIRIN EC 81 MG TABLET PO SCH (08:24)
[2019-05-15] MEDS: INSULIN REGULAR 100 UNIT/ML SUBCUT SCH ×4 (08:24→21:05)
[2019-05-15] MEDS: LORATADINE 10 MG TABLET PO SCH (08:24)
[2019-05-15] MEDS: GLIMEPIRIDE 4 MG TABLET PO SCH ×2 (08:24→16:53)
[2019-05-15] MEDS: DOCUSATE SODIUM 100 MG CAPSULE PO SCH (08:24)
[2019-05-15] MEDS: PANTOPRAZOLE 40 MG TABLET PO SCH (08:24)
[2019-05-15] MEDS: CHLORHEXIDINE 0.12% ORAL RINSE 60 ML BOTTLE SWISH/SPIT SCH ×2 (08:27→21:00)
[2019-05-15] MEDS: ALBUTEROL/IPRATROPIUM 3 ML NEB RESP TX SCH ×2 (13:16→20:20)
[2019-05-15] MEDS: SERTRALINE 25 MG TABLET PO SCH (21:00)
[2019-05-15] MEDS: oxyCODONE/ACETAMINOPHEN 5-325 MG TABLET PO PRN (21:14)
[2019-05-15] MEDS: ZALEPLON 5 MG CAPSULE PO PRN (21:14)
[2019-05-16] MEDS: ALBUTEROL/IPRATROPIUM 3 ML NEB RESP TX SCH ×4 (01:52→19:45)
[2019-05-16 03:04] LABS: Basophils # 0.1 10*3/uL (0.0-0.2); Basophils % 0.4 % (0.0-0.8); Eosinophils # 0.3 10*3/uL (0.0-0.87); Eosinophils % 1.7 % (0.00-10.9); Hematocrit 28.9 VOL% (35.7-47.0); Hemoglobin 9.1 GM/DL (12.0-16.0); Immature Granulocytes Absolute 0.33 #; Lymphocytes # 3.5 10*3/uL (1.4-4.0); Lymphocytes % 21.5 % (21.3-54.2); Mean Corpuscular HGB Conc 31.5 GM/DL (32-36); Mean Corpuscular Volume 89.8 FL (87-102); Mean Platelet Volume 12.4 FL (9.6-12.0); Monocytes % 7.8 % (1.7-12.7); NRBC # 0.03 10*3/uL; Neutrophils % 66.6 % (38.7-73.9); Platelet Count 135 T/CUMM (130-400); Red Blood Count 3.22 MC/CUMM (3.8-5.5); Red Cell Distribution Width 15.4 % (9.3-17.3); White Blood Count 16.1 T/CUMM (4-12)
[2019-05-16 03:17] LABS: Alanine Aminotransferase 32 U/L (13-56); Albumin 2.7 G/DL (3.4-5.0); Alkaline Phosphatase 56 U/L (45-117); Aspartate Amino Transferase 35 U/L (0-37); Bilirubin,Indirect 0.4 MG/DL (0.0-1.0); Blood Urea Nitrogen 34 MG/DL (7-18); Calcium 8.1 MG/DL (8.5-10.1); Estimated Glom Filtration Rate 65 ML/MIN; Glucose 202 MG/DL (74-106); Osmolality,Calculated 294.3 MOS/KG (273-304); Total Protein 5.5 G/DL (6.4-8.3)
[2019-05-16] MEDS: KETOROLAC 30 MG/1 ML VIAL IV SCH ×4 (05:40→21:26)
[2019-05-16] MEDS ORDERED: FUROSEMIDE 40 MG/4 ML VIAL IV ONE (08:28)
[2019-05-16] MEDS: FERROUS SULFATE 325 MG TABLET PO SCH (09:15)
[2019-05-16] MEDS: METOPROLOL SUCCINATE XL 25 MG TABLET PO SCH (09:15)
[2019-05-16] MEDS: ROSUVASTATIN 20 MG TABLET PO SCH (09:15)
[2019-05-16] MEDS: INSULIN NPH 100 UNIT/ML SUBCUT SCH ×2 (09:15→21:28)
[2019-05-16] MEDS: CHOLECALCIFEROL 1,000 UNIT TABLET PO SCH (09:15)
[2019-05-16] MEDS: MAGNESIUM OXIDE 400 MG TABLET PO SCH (09:15)
[2019-05-16] MEDS: DOCUSATE SODIUM 100 MG CAPSULE PO SCH (09:15)
[2019-05-16] MEDS: PANTOPRAZOLE 40 MG TABLET PO SCH (09:15)
[2019-05-16] MEDS: ASPIRIN EC 81 MG TABLET PO SCH (09:15)
[2019-05-16] MEDS: metFORMIN 500 MG TABLET PO SCH ×2 (09:15→17:51)
[2019-05-16] MEDS: GABAPENTIN 300 MG CAPSULE PO SCH ×3 (09:15→21:27)
[2019-05-16] MEDS: GLIMEPIRIDE 4 MG TABLET PO SCH ×2 (09:16→17:51)
[2019-05-16] MEDS: LORATADINE 10 MG TABLET PO SCH (09:16)
[2019-05-16] MEDS: amLODIPine 10 MG TABLET PO SCH (09:16)
[2019-05-16] MEDS: CHLORHEXIDINE 0.12% ORAL RINSE 60 ML BOTTLE SWISH/SPIT SCH ×2 (09:16→21:27)
[2019-05-16] MEDS: INSULIN REGULAR 100 UNIT/ML SUBCUT SCH ×3 (14:10→21:28)
[2019-05-16] MEDS: SERTRALINE 25 MG TABLET PO SCH (21:27)
[2019-05-17] MEDS: ALBUTEROL/IPRATROPIUM 3 ML NEB RESP TX SCH ×4 (00:39→19:22)
[2019-05-17] MEDS: ZALEPLON 5 MG CAPSULE PO PRN (00:57)
[2019-05-17] MEDS: KETOROLAC 30 MG/1 ML VIAL IV SCH (05:27)
[2019-05-17 06:43] LABS: Basophils # 0.1 10*3/uL (0.0-0.2); Basophils % 0.4 % (0.0-0.8); Eosinophils # 0.6 10*3/uL (0.0-0.87); Eosinophils % 4.5 % (0.00-10.9); Hematocrit 31.4 VOL% (35.7-47.0); Hemoglobin 9.7 GM/DL (12.0-16.0); Immature Granulocytes % 4.3 %; Immature Granulocytes Absolute 0.56 #; Lymphocytes # 2.5 10*3/uL (1.4-4.0); Lymphocytes % 19.4 % (21.3-54.2); Mean Corpuscular HGB Conc 30.9 GM/DL (32-36); Mean Corpuscular Volume 90.2 FL (87-102); Mean Platelet Volume 11.6 FL (9.6-12.0); Monocytes % 7.9 % (1.7-12.7); NRBC # 0.02 10*3/uL; Neutrophils % 63.5 % (38.7-73.9); Platelet Count 150 T/CUMM (130-400); Red Blood Count 3.48 MC/CUMM (3.8-5.5); Red Cell Distribution Width 15.4 % (9.3-17.3); White Blood Count 13.1 T/CUMM (4-12)
[2019-05-17 06:55] LABS: Calcium 7.5 MG/DL (8.5-10.1); Osmolality,Calculated 284.4 MOS/KG (273-304)
[2019-05-17 07:03] LABS: Eosinophils 5 % (0-10); Lymphocytes 23 % (20-55); Promyelocytes 1 %; Segmented Neutrophils 64 % (50-85); Total Cells Counted 100
[2019-05-17 07:04] LABS: Hypochromasia 1+; Microcytosis 1+; Platelet Estimate Adequate; Polychromasia Slight
[2019-05-17 07:05] LABS: Atypical Lymphocytes Few
[2019-05-17] MEDS ORDERED: FUROSEMIDE 40 MG/4 ML VIAL IV ONE ×2 (08:48→16:00)
[2019-05-17] MEDS ORDERED: INFLUENZA VIRUS VACCINE 0.5 ML SYRINGE IM ONE (09:00)
[2019-05-17] MEDS: INSULIN REGULAR 100 UNIT/ML SUBCUT SCH ×4 (09:34→20:23)
[2019-05-17] MEDS: metFORMIN 500 MG TABLET PO SCH ×2 (09:36→16:18)
[2019-05-17] MEDS: GLIMEPIRIDE 4 MG TABLET PO SCH ×2 (09:36→16:18)
[2019-05-17] MEDS: GABAPENTIN 300 MG CAPSULE PO SCH ×3 (09:36→20:23)
[2019-05-17] MEDS: ROSUVASTATIN 20 MG TABLET PO SCH (09:36)
[2019-05-17] MEDS: FERROUS SULFATE 325 MG TABLET PO SCH (09:36)
[2019-05-17] MEDS: ASPIRIN EC 81 MG TABLET PO SCH (09:37)
[2019-05-17] MEDS: CHOLECALCIFEROL 1,000 UNIT TABLET PO SCH (09:37)
[2019-05-17] MEDS: METOPROLOL SUCCINATE XL 25 MG TABLET PO SCH (09:37)
[2019-05-17] MEDS: MAGNESIUM OXIDE 400 MG TABLET PO SCH (09:37)
[2019-05-17] MEDS: DOCUSATE SODIUM 100 MG CAPSULE PO SCH (09:38)
[2019-05-17] MEDS: PANTOPRAZOLE 40 MG TABLET PO SCH (09:38)
[2019-05-17] MEDS: amLODIPine 10 MG TABLET PO SCH (09:38)
[2019-05-17] MEDS: LORATADINE 10 MG TABLET PO SCH (09:38)
[2019-05-17] MEDS: CHLORHEXIDINE 0.12% ORAL RINSE 60 ML BOTTLE SWISH/SPIT SCH ×2 (09:44→20:24)
[2019-05-17] MEDS: INSULIN NPH 100 UNIT/ML SUBCUT SCH ×2 (09:45→20:23)
[2019-05-17] MEDS ORDERED: metOLazone 5 MG TABLET PO SCH (12:00)
[2019-05-17] MEDS: SERTRALINE 25 MG TABLET PO SCH (20:22)
[2019-05-17] MEDS: BENZONATATE 100 MG CAPSULE PO SCH (20:22)
[2019-05-18] MEDS: ALBUTEROL/IPRATROPIUM 3 ML NEB RESP TX SCH ×4 (00:13→20:45)
[2019-05-18 04:31] LABS: Basophils # 0.1 10*3/uL (0.0-0.2); Basophils % 0.5 % (0.0-0.8); Eosinophils # 0.7 10*3/uL (0.0-0.87); Eosinophils % 4.8 % (0.00-10.9); Hematocrit 34.8 VOL% (35.7-47.0); Hemoglobin 10.8 GM/DL (12.0-16.0); Immature Granulocytes % 2.8 %; Immature Granulocytes Absolute 0.42 #; Lymphocytes # 3.2 10*3/uL (1.4-4.0); Lymphocytes % 21.4 % (21.3-54.2); Mean Corpuscular Volume 88.5 FL (87-102); Monocytes % 9.8 % (1.7-12.7); Neutrophils % 60.7 % (38.7-73.9); Platelet Count 210 T/CUMM (130-400); Red Blood Count 3.93 MC/CUMM (3.8-5.5); Red Cell Distribution Width 14.9 % (9.3-17.3); White Blood Count 14.9 T/CUMM (4-12)
[2019-05-18 04:54] LABS: Alanine Aminotransferase 30 U/L (13-56); Albumin 2.9 G/DL (3.4-5.0); Alkaline Phosphatase 68 U/L (45-117); Aspartate Amino Transferase 28 U/L (0-37); Bilirubin,Indirect 0.8 MG/DL (0.0-1.0); Blood Urea Nitrogen 19 MG/DL (7-18); Calcium 8.6 MG/DL (8.5-10.1); Estimated Glom Filtration Rate 75 ML/MIN; Glucose 103 MG/DL (74-106); Osmolality,Calculated 278.5 MOS/KG (273-304); Total Protein 6.5 G/DL (6.4-8.3)
[2019-05-18] MEDS: POTASSIUM CHLORIDE 20 MEQ TABLET PO PRN ×2 (05:15→06:42)
[2019-05-18] MEDS ORDERED: KETOROLAC 30 MG/1 ML VIAL IV ONE (07:56)
[2019-05-18] MEDS: GABAPENTIN 300 MG CAPSULE PO SCH ×3 (08:00→23:20)
[2019-05-18] MEDS: oxyCODONE/ACETAMINOPHEN 5-325 MG TABLET PO PRN ×2 (08:00→17:19)
[2019-05-18] MEDS: LORATADINE 10 MG TABLET PO SCH (08:00)
[2019-05-18] MEDS: INSULIN REGULAR 100 UNIT/ML SUBCUT SCH ×4 (08:32→23:30)
[2019-05-18] MEDS: METOPROLOL SUCCINATE XL 25 MG TABLET PO SCH (08:40)
[2019-05-18] MEDS: MAGNESIUM OXIDE 400 MG TABLET PO SCH (08:40)
[2019-05-18] MEDS: ROSUVASTATIN 20 MG TABLET PO SCH (08:40)
[2019-05-18] MEDS: amLODIPine 10 MG TABLET PO SCH (08:41)
[2019-05-18] MEDS: metFORMIN 500 MG TABLET PO SCH ×2 (08:41→16:51)
[2019-05-18] MEDS: PANTOPRAZOLE 40 MG TABLET PO SCH (08:42)
[2019-05-18] MEDS: ASPIRIN EC 81 MG TABLET PO SCH (08:42)
[2019-05-18] MEDS: CHOLECALCIFEROL 1,000 UNIT TABLET PO SCH (08:42)
[2019-05-18] MEDS: BENZONATATE 100 MG CAPSULE PO SCH ×3 (08:45→23:21)
[2019-05-18] MEDS: GLIMEPIRIDE 4 MG TABLET PO SCH ×2 (08:46→16:50)
[2019-05-18] MEDS: DOCUSATE SODIUM 100 MG CAPSULE PO SCH (08:47)
[2019-05-18] MEDS: FERROUS SULFATE 325 MG TABLET PO SCH (08:47)
[2019-05-18] MEDS: CHLORHEXIDINE 0.12% ORAL RINSE 60 ML BOTTLE SWISH/SPIT SCH ×2 (08:48→23:22)
[2019-05-18] MEDS ORDERED: metOLazone 5 MG TABLET PO SCH (09:00)
[2019-05-18] MEDS: INSULIN NPH 100 UNIT/ML SUBCUT SCH ×2 (09:09→23:30)
[2019-05-18] MEDS ORDERED: FUROSEMIDE 40 MG/4 ML VIAL IV ONE (11:24)
[2019-05-18] MEDS ORDERED: metOLazone 5 MG TABLET PO ONE (11:25)
[2019-05-18] MEDS: NEOMYCIN/POLYMYXIN/BACITRACIN OINT 0.9 GM PACK TOP SCH ×2 (14:30→23:22)
[2019-05-18] MEDS: SERTRALINE 25 MG TABLET PO SCH (23:21)
[2019-05-19] MEDS: ALBUTEROL/IPRATROPIUM 3 ML NEB RESP TX SCH ×4 (01:47→20:02)
[2019-05-19 05:40] LABS: Basophils # 0.1 10*3/uL (0.0-0.2); Basophils % 0.5 % (0.0-0.8); Eosinophils # 0.7 10*3/uL (0.0-0.87); Eosinophils % 4.6 % (0.00-10.9); Hemoglobin 10.9 GM/DL (12.0-16.0); Immature Granulocytes % 3.5 %; Immature Granulocytes Absolute 0.52 #; Lymphocytes # 2.5 10*3/uL (1.4-4.0); Lymphocytes % 16.7 % (21.3-54.2); Mean Corpuscular HGB Conc 32.1 GM/DL (32-36); Mean Corpuscular Volume 89.7 FL (87-102); Mean Platelet Volume 11.7 FL (9.6-12.0); Monocytes % 9.6 % (1.7-12.7); Neutrophils % 65.1 % (38.7-73.9); Platelet Count 202 T/CUMM (130-400); Red Blood Count 3.79 MC/CUMM (3.8-5.5); Red Cell Distribution Width 14.7 % (9.3-17.3); White Blood Count 14.7 T/CUMM (4-12)
[2019-05-19 05:57] LABS: Alanine Aminotransferase 28 U/L (13-56); Albumin 2.8 G/DL (3.4-5.0); Alkaline Phosphatase 76 U/L (45-117); Aspartate Amino Transferase 23 U/L (0-37); Band Neutrophils 1 % (0-10); Bilirubin,Indirect 0.6 MG/DL (0.0-1.0); Blood Urea Nitrogen 22 MG/DL (7-18); Calcium 9.9 MG/DL (8.5-10.1); Eosinophils 8 % (0-10); Estimated Glom Filtration Rate 76 ML/MIN; Glucose 168 MG/DL (74-106); Hypochromasia 1+; Lymphocytes 11 % (20-55); Osmolality,Calculated 279.8 MOS/KG (273-304); Platelet Estimate Adequate; Segmented Neutrophils 72 % (50-85); Total Cells Counted 100; Total Protein 6.5 G/DL (6.4-8.3)
[2019-05-19 05:58] LABS: Troponin I 0.911 NG/ML (0.00-0.045)
[2019-05-19] MEDS: INSULIN NPH 100 UNIT/ML SUBCUT SCH ×2 (09:01→21:34)
[2019-05-19] MEDS: INSULIN REGULAR 100 UNIT/ML SUBCUT SCH ×4 (09:02→21:35)
[2019-05-19] MEDS: PANTOPRAZOLE 40 MG TABLET PO SCH (09:23)
[2019-05-19] MEDS: FERROUS SULFATE 325 MG TABLET PO SCH (09:23)
[2019-05-19] MEDS: amLODIPine 10 MG TABLET PO SCH (09:23)
[2019-05-19] MEDS: LORATADINE 10 MG TABLET PO SCH (09:24)
[2019-05-19] MEDS: CHOLECALCIFEROL 1,000 UNIT TABLET PO SCH (09:24)
[2019-05-19] MEDS: GABAPENTIN 300 MG CAPSULE PO SCH ×4 (09:24→21:34)
[2019-05-19] MEDS: GLIMEPIRIDE 4 MG TABLET PO SCH ×2 (09:24→18:23)
[2019-05-19] MEDS: DOCUSATE SODIUM 100 MG CAPSULE PO SCH (09:24)
[2019-05-19] MEDS: ROSUVASTATIN 20 MG TABLET PO SCH (09:25)
[2019-05-19] MEDS: BENZONATATE 100 MG CAPSULE PO SCH ×4 (09:25→21:33)
[2019-05-19] MEDS: MAGNESIUM OXIDE 400 MG TABLET PO SCH (09:26)
[2019-05-19] MEDS: ASPIRIN EC 81 MG TABLET PO SCH (09:26)
[2019-05-19] MEDS: METOPROLOL SUCCINATE XL 25 MG TABLET PO SCH (09:26)
[2019-05-19] MEDS: metFORMIN 500 MG TABLET PO SCH ×2 (09:27→18:23)
[2019-05-19] MEDS: CHLORHEXIDINE 0.12% ORAL RINSE 60 ML BOTTLE SWISH/SPIT SCH ×2 (09:28→21:36)
[2019-05-19] MEDS: NEOMYCIN/POLYMYXIN/BACITRACIN OINT 0.9 GM PACK TOP SCH ×2 (10:32→21:35)
[2019-05-19] MEDS: KETOROLAC 30 MG/1 ML VIAL IV PRN ×2 (11:11→21:43)
[2019-05-19] MEDS: FUROSEMIDE 40 MG TABLET PO SCH (13:52)
[2019-05-19] MEDS: ZALEPLON 5 MG CAPSULE PO PRN (21:34)
[2019-05-19] MEDS: SERTRALINE 25 MG TABLET PO SCH (21:34)
[2019-05-20] MEDS: ALBUTEROL/IPRATROPIUM 3 ML NEB RESP TX SCH ×4 (00:40→18:58)
[2019-05-20] MEDS: MAGNESIUM HYDROXIDE SUSP 30 ML UDCUP PO PRN (01:02)
[2019-05-20 05:43] LABS: Basophils # 0.1 10*3/uL (0.0-0.2); Basophils % 0.6 % (0.0-0.8); Eosinophils # 0.6 10*3/uL (0.0-0.87); Eosinophils % 4.9 % (0.00-10.9); Hematocrit 32.5 VOL% (35.7-47.0); Hemoglobin 10.2 GM/DL (12.0-16.0); Immature Granulocytes % 5.6 %; Immature Granulocytes Absolute 0.68 #; Lymphocytes # 2.7 10*3/uL (1.4-4.0); Lymphocytes % 22.2 % (21.3-54.2); Mean Corpuscular HGB Conc 31.4 GM/DL (32-36); Mean Corpuscular Volume 89.8 FL (87-102); Mean Platelet Volume 11.5 FL (9.6-12.0); Monocytes % 12.2 % (1.7-12.7); Neutrophils % 54.5 % (38.7-73.9); Platelet Count 213 T/CUMM (130-400); Red Blood Count 3.62 MC/CUMM (3.8-5.5); Red Cell Distribution Width 14.6 % (9.3-17.3); White Blood Count 12.2 T/CUMM (4-12)
[2019-05-20 05:55] LABS: Calcium 9.1 MG/DL (8.5-10.1); Osmolality,Calculated 280.4 MOS/KG (273-304)
[2019-05-20 06:04] LABS: Eosinophils 4 % (0-10); Hypochromasia 1+; Lymphocytes 23 % (20-55); Ovalocytes Slight; Platelet Estimate Adequate; Segmented Neutrophils 63 % (50-85); Total Cells Counted 100
[2019-05-20] MEDS ORDERED: POTASSIUM CHLORIDE 20 MEQ TABLET PO ONE (10:07)
[2019-05-20] MEDS: INSULIN NPH 100 UNIT/ML SUBCUT SCH ×2 (10:49→21:00)
[2019-05-20] MEDS: INSULIN REGULAR 100 UNIT/ML SUBCUT SCH ×4 (10:49→21:00)
[2019-05-20] MEDS: GLIMEPIRIDE 4 MG TABLET PO SCH ×2 (10:50→17:13)
[2019-05-20] MEDS: FUROSEMIDE 40 MG TABLET PO SCH (10:50)
[2019-05-20] MEDS: LORATADINE 10 MG TABLET PO SCH (10:50)
[2019-05-20] MEDS: ASPIRIN EC 81 MG TABLET PO SCH (10:50)
[2019-05-20] MEDS: ROSUVASTATIN 20 MG TABLET PO SCH (10:50)
[2019-05-20] MEDS: NEOMYCIN/POLYMYXIN/BACITRACIN OINT 0.9 GM PACK TOP SCH ×2 (10:50→21:04)
[2019-05-20] MEDS: CHLORHEXIDINE 0.12% ORAL RINSE 60 ML BOTTLE SWISH/SPIT SCH ×2 (10:50→21:01)
[2019-05-20] MEDS: DOCUSATE SODIUM 100 MG CAPSULE PO SCH (10:50)
[2019-05-20] MEDS: metFORMIN 500 MG TABLET PO SCH ×2 (10:50→17:13)
[2019-05-20] MEDS: GABAPENTIN 300 MG CAPSULE PO SCH ×3 (10:50→21:01)
[2019-05-20] MEDS: FERROUS SULFATE 325 MG TABLET PO SCH (10:50)
[2019-05-20] MEDS: amLODIPine 5 MG TABLET PO SCH (10:50)
[2019-05-20] MEDS: MAGNESIUM OXIDE 400 MG TABLET PO SCH (10:50)
[2019-05-20] MEDS: METOPROLOL SUCCINATE XL 25 MG TABLET PO SCH (10:51)
[2019-05-20] MEDS: BENZONATATE 100 MG CAPSULE PO SCH ×3 (10:51→21:01)
[2019-05-20] MEDS: PANTOPRAZOLE 40 MG TABLET PO SCH (10:51)
[2019-05-20] MEDS: CHOLECALCIFEROL 1,000 UNIT TABLET PO SCH (10:51)
[2019-05-20] MEDS ORDERED: LEVOFLOXACIN 500 MG TABLET PO ONE (12:08)
[2019-05-20] MEDS: SERTRALINE 25 MG TABLET PO SCH (21:01)
[2019-05-20] MEDS: KETOROLAC 15 MG/1 ML VIAL IV SCH (21:01)
[2019-05-20] MEDS: ZALEPLON 5 MG CAPSULE PO PRN (21:07)
[2019-05-21] MEDS: KETOROLAC 15 MG/1 ML VIAL IV SCH ×3 (05:24→20:43)
[2019-05-21 05:43] LABS: Basophils # 0.1 10*3/uL (0.0-0.2); Basophils % 0.6 % (0.0-0.8); Eosinophils # 0.8 10*3/uL (0.0-0.87); Eosinophils % 5.6 % (0.00-10.9); Hematocrit 32.4 VOL% (35.7-47.0); Hemoglobin 9.9 GM/DL (12.0-16.0); Immature Granulocytes % 4.4 %; Lymphocytes # 2.9 10*3/uL (1.4-4.0); Lymphocytes % 21.2 % (21.3-54.2); Mean Corpuscular HGB Conc 30.6 GM/DL (32-36); Mean Corpuscular Volume 90.8 FL (87-102); Monocytes % 11.7 % (1.7-12.7); Neutrophils % 56.5 % (38.7-73.9); Platelet Count 243 T/CUMM (130-400); Red Blood Count 3.57 MC/CUMM (3.8-5.5); Red Cell Distribution Width 14.6 % (9.3-17.3); White Blood Count 13.8 T/CUMM (4-12)
[2019-05-21 06:05] LABS: Eosinophils 9 % (0-10); Hypochromasia 1+; Lymphocytes 19 % (20-55); Platelet Estimate Adequate; Segmented Neutrophils 65 % (50-85); Total Cells Counted 100
[2019-05-21 06:06] LABS: Calcium 9.2 MG/DL (8.5-10.1); Osmolality,Calculated 282.3 MOS/KG (273-304)
[2019-05-21] MEDS: ALBUTEROL/IPRATROPIUM 3 ML NEB RESP TX SCH ×4 (08:20→19:09)
[2019-05-21] MEDS: CHLORHEXIDINE 0.12% ORAL RINSE 60 ML BOTTLE SWISH/SPIT SCH ×2 (09:13→20:43)
[2019-05-21] MEDS: DOCUSATE SODIUM 100 MG CAPSULE PO SCH (09:14)
[2019-05-21] MEDS: metFORMIN 500 MG TABLET PO SCH ×2 (09:14→17:06)
[2019-05-21] MEDS: MAGNESIUM OXIDE 400 MG TABLET PO SCH (09:14)
[2019-05-21] MEDS: GABAPENTIN 300 MG CAPSULE PO SCH ×3 (09:14→20:43)
[2019-05-21] MEDS: LORATADINE 10 MG TABLET PO SCH (09:14)
[2019-05-21] MEDS: BENZONATATE 100 MG CAPSULE PO SCH ×3 (09:14→20:43)
[2019-05-21] MEDS: FERROUS SULFATE 325 MG TABLET PO SCH (09:14)
[2019-05-21] MEDS: PANTOPRAZOLE 40 MG TABLET PO SCH (09:14)
[2019-05-21] MEDS: POTASSIUM CHLORIDE 10 MEQ TABLET PO SCH (09:15)
[2019-05-21] MEDS: ASPIRIN EC 81 MG TABLET PO SCH (09:15)
[2019-05-21] MEDS: CHOLECALCIFEROL 1,000 UNIT TABLET PO SCH (09:15)
[2019-05-21] MEDS: INSULIN NPH 100 UNIT/ML SUBCUT SCH ×2 (09:15→20:43)
[2019-05-21] MEDS: FUROSEMIDE 40 MG TABLET PO SCH (09:15)
[2019-05-21] MEDS: GLIMEPIRIDE 4 MG TABLET PO SCH ×2 (09:15→17:07)
[2019-05-21] MEDS: amLODIPine 5 MG TABLET PO SCH (09:15)
[2019-05-21] MEDS: MAGNESIUM HYDROXIDE SUSP 30 ML UDCUP PO PRN (09:15)
[2019-05-21] MEDS: NEOMYCIN/POLYMYXIN/BACITRACIN OINT 0.9 GM PACK TOP SCH ×2 (09:15→20:49)
[2019-05-21] MEDS: LEVOFLOXACIN 500 MG TABLET PO SCH (09:15)
[2019-05-21] MEDS: INSULIN REGULAR 100 UNIT/ML SUBCUT SCH ×4 (09:15→20:48)
[2019-05-21] MEDS: ROSUVASTATIN 20 MG TABLET PO SCH (10:47)
[2019-05-21] MEDS: METOPROLOL SUCCINATE XL 25 MG TABLET PO SCH (10:48)
[2019-05-21] MEDS: SERTRALINE 50 MG TABLET PO SCH (14:44)
[2019-05-21] MEDS: ZALEPLON 5 MG CAPSULE PO PRN (20:43)
[2019-05-22] MEDS: ALBUTEROL/IPRATROPIUM 3 ML NEB RESP TX SCH ×4 (00:37→19:18)
[2019-05-22] MEDS: KETOROLAC 15 MG/1 ML VIAL IV SCH (04:57)
[2019-05-22 05:31] LABS: Basophils # 0.1 10*3/uL (0.0-0.2); Basophils % 0.7 % (0.0-0.8); Eosinophils # 0.6 10*3/uL (0.0-0.87); Eosinophils % 3.3 % (0.00-10.9); Hematocrit 30.8 VOL% (35.7-47.0); Hemoglobin 9.4 GM/DL (12.0-16.0); Immature Granulocytes % 3.2 %; Immature Granulocytes Absolute 0.57 #; Lymphocytes # 2.1 10*3/uL (1.4-4.0); Lymphocytes % 11.7 % (21.3-54.2); Mean Corpuscular HGB Conc 30.5 GM/DL (32-36); Mean Corpuscular Volume 91.7 FL (87-102); Mean Platelet Volume 11.5 FL (9.6-12.0); Neutrophils % 72.1 % (38.7-73.9); Platelet Count 242 T/CUMM (130-400); Red Blood Count 3.36 MC/CUMM (3.8-5.5); Red Cell Distribution Width 14.8 % (9.3-17.3)
[2019-05-22 05:32] LABS: Calcium 8.4 MG/DL (8.5-10.1)
[2019-05-22 06:01] LABS: Eosinophils 3 % (0-10); Lymphocytes 11 % (20-55); Metamyelocytes 1 %; Platelet Estimate Normal; Polychromasia Few; Segmented Neutrophils 83 % (50-85); Total Cells Counted 100
[2019-05-22] MEDS: INSULIN REGULAR 100 UNIT/ML SUBCUT SCH ×4 (09:00→21:34)
[2019-05-22] MEDS: INSULIN NPH 100 UNIT/ML SUBCUT SCH ×2 (09:17→21:34)
[2019-05-22] MEDS: LORATADINE 10 MG TABLET PO SCH (09:18)
[2019-05-22] MEDS: metFORMIN 500 MG TABLET PO SCH ×2 (09:18→16:12)
[2019-05-22] MEDS: ROSUVASTATIN 20 MG TABLET PO SCH (09:18)
[2019-05-22] MEDS: amLODIPine 5 MG TABLET PO SCH (09:18)
[2019-05-22] MEDS: DOCUSATE SODIUM 100 MG CAPSULE PO SCH (09:18)
[2019-05-22] MEDS: FERROUS SULFATE 325 MG TABLET PO SCH (09:18)
[2019-05-22] MEDS: NEOMYCIN/POLYMYXIN/BACITRACIN OINT 0.9 GM PACK TOP SCH ×2 (09:18→21:35)
[2019-05-22] MEDS: LEVOFLOXACIN 500 MG TABLET PO SCH (09:18)
[2019-05-22] MEDS: SERTRALINE 50 MG TABLET PO SCH (09:19)
[2019-05-22] MEDS: PANTOPRAZOLE 40 MG TABLET PO SCH (09:19)
[2019-05-22] MEDS: FUROSEMIDE 40 MG TABLET PO SCH (09:19)
[2019-05-22] MEDS: ASPIRIN EC 81 MG TABLET PO SCH (09:19)
[2019-05-22] MEDS: METOPROLOL SUCCINATE XL 25 MG TABLET PO SCH (09:19)
[2019-05-22] MEDS: GABAPENTIN 300 MG CAPSULE PO SCH ×3 (09:19→21:35)
[2019-05-22] MEDS: GLIMEPIRIDE 4 MG TABLET PO SCH ×2 (09:19→16:12)
[2019-05-22] MEDS: CHOLECALCIFEROL 1,000 UNIT TABLET PO SCH (09:19)
[2019-05-22] MEDS: MAGNESIUM OXIDE 400 MG TABLET PO SCH (09:19)
[2019-05-22] MEDS: POTASSIUM CHLORIDE 10 MEQ TABLET PO SCH (09:19)
[2019-05-22] MEDS: BENZONATATE 100 MG CAPSULE PO SCH ×3 (09:19→21:35)
[2019-05-22] MEDS: CHLORHEXIDINE 0.12% ORAL RINSE 60 ML BOTTLE SWISH/SPIT SCH ×2 (09:22→21:35)
[2019-05-22] MEDS: oxyCODONE/ACETAMINOPHEN 5-325 MG TABLET PO PRN (16:15)
[2019-05-22] MEDS: ZALEPLON 5 MG CAPSULE PO PRN (21:35)
[2019-05-23] MEDS: ALBUTEROL/IPRATROPIUM 3 ML NEB RESP TX SCH ×4 (00:14→19:42)
[2019-05-23 07:58] LABS: Basophils # 0.1 10*3/uL (0.0-0.2); Basophils % 0.6 % (0.0-0.8); Eosinophils # 0.9 10*3/uL (0.0-0.87); Eosinophils % 5.9 % (0.00-10.9); Hematocrit 33.2 VOL% (35.7-47.0); Hemoglobin 10.5 GM/DL (12.0-16.0); Immature Granulocytes % 2.2 %; Immature Granulocytes Absolute 0.34 #; Lymphocytes # 2.2 10*3/uL (1.4-4.0); Lymphocytes % 14.2 % (21.3-54.2); Mean Corpuscular HGB Conc 31.6 GM/DL (32-36); Mean Corpuscular Volume 88.8 FL (87-102); Mean Platelet Volume 10.8 FL (9.6-12.0); Monocytes % 8.5 % (1.7-12.7); Neutrophils % 68.6 % (38.7-73.9); Platelet Count 265 T/CUMM (130-400); Red Blood Count 3.74 MC/CUMM (3.8-5.5); Red Cell Distribution Width 14.7 % (9.3-17.3); White Blood Count 15.3 T/CUMM (4-12)
[2019-05-23] MEDS: GLIMEPIRIDE 4 MG TABLET PO SCH ×2 (09:20→16:14)
[2019-05-23] MEDS: LORATADINE 10 MG TABLET PO SCH (09:20)
[2019-05-23] MEDS: DOCUSATE SODIUM 100 MG CAPSULE PO SCH (09:20)
[2019-05-23] MEDS: ASPIRIN EC 81 MG TABLET PO SCH (09:21)
[2019-05-23] MEDS: SERTRALINE 50 MG TABLET PO SCH (09:21)
[2019-05-23] MEDS: oxyCODONE/ACETAMINOPHEN 5-325 MG TABLET PO PRN (09:21)
[2019-05-23] MEDS: CHOLECALCIFEROL 1,000 UNIT TABLET PO SCH (09:21)
[2019-05-23] MEDS: metFORMIN 500 MG TABLET PO SCH ×2 (09:21→16:14)
[2019-05-23] MEDS: LEVOFLOXACIN 500 MG TABLET PO SCH (09:21)
[2019-05-23] MEDS: POTASSIUM CHLORIDE 10 MEQ TABLET PO SCH (09:21)
[2019-05-23] MEDS: FERROUS SULFATE 325 MG TABLET PO SCH (09:22)
[2019-05-23] MEDS: ROSUVASTATIN 20 MG TABLET PO SCH (09:22)
[2019-05-23] MEDS: FUROSEMIDE 40 MG TABLET PO SCH (09:22)
[2019-05-23] MEDS: BENZONATATE 100 MG CAPSULE PO SCH ×3 (09:22→21:01)
[2019-05-23] MEDS: INSULIN NPH 100 UNIT/ML SUBCUT SCH ×2 (09:22→21:02)
[2019-05-23] MEDS: PANTOPRAZOLE 40 MG TABLET PO SCH (09:22)
[2019-05-23] MEDS: MAGNESIUM OXIDE 400 MG TABLET PO SCH (09:22)
[2019-05-23] MEDS: METOPROLOL SUCCINATE XL 25 MG TABLET PO SCH (09:22)
[2019-05-23] MEDS: amLODIPine 5 MG TABLET PO SCH (09:22)
[2019-05-23] MEDS: INSULIN REGULAR 100 UNIT/ML SUBCUT SCH ×4 (09:23→21:03)
[2019-05-23] MEDS: NEOMYCIN/POLYMYXIN/BACITRACIN OINT 0.9 GM PACK TOP SCH ×2 (09:23→21:03)
[2019-05-23] MEDS: CHLORHEXIDINE 0.12% ORAL RINSE 60 ML BOTTLE SWISH/SPIT SCH ×2 (09:23→21:03)
[2019-05-23] MEDS: GABAPENTIN 300 MG CAPSULE PO SCH ×3 (09:25→21:01)
[2019-05-23] MEDS: ZALEPLON 5 MG CAPSULE PO PRN (21:01)
[2019-05-24] MEDS: ALBUTEROL/IPRATROPIUM 3 ML NEB RESP TX SCH ×2 (00:38→07:22)
[2019-05-24] MEDS: oxyCODONE/ACETAMINOPHEN 5-325 MG TABLET PO PRN (01:03)
[2019-05-24 04:29] LABS: Basophils # 0.1 10*3/uL (0.0-0.2); Basophils % 0.8 % (0.0-0.8); Eosinophils % 5.5 % (0.00-10.9); Hematocrit 33.2 VOL% (35.7-47.0); Hemoglobin 10.4 GM/DL (12.0-16.0); Immature Granulocytes % 2.5 %; Immature Granulocytes Absolute 0.43 #; Lymphocytes # 2.9 10*3/uL (1.4-4.0); Lymphocytes % 16.3 % (21.3-54.2); Mean Corpuscular HGB Conc 31.3 GM/DL (32-36); Mean Corpuscular Volume 90.5 FL (87-102); Monocytes % 9.1 % (1.7-12.7); Neutrophils % 65.8 % (38.7-73.9); Platelet Count 293 T/CUMM (130-400); Red Blood Count 3.67 MC/CUMM (3.8-5.5); Red Cell Distribution Width 14.6 % (9.3-17.3); White Blood Count 17.5 T/CUMM (4-12)
[2019-05-24 04:46] LABS: Osmolality,Calculated 274.7 MOS/KG (273-304)
[2019-05-24] MEDS: INSULIN REGULAR 100 UNIT/ML SUBCUT SCH (07:38)
[2019-05-24 08:01] VITALS: BP 139/63
[2019-05-24] MEDS: FERROUS SULFATE 325 MG TABLET PO SCH (08:09)
[2019-05-24] MEDS: METOPROLOL SUCCINATE XL 25 MG TABLET PO SCH (08:09)
[2019-05-24] MEDS: metFORMIN 500 MG TABLET PO SCH (08:09)
[2019-05-24] MEDS: ASPIRIN EC 81 MG TABLET PO SCH (08:09)
[2019-05-24] MEDS: MAGNESIUM OXIDE 400 MG TABLET PO SCH (08:09)
[2019-05-24] MEDS: ROSUVASTATIN 20 MG TABLET PO SCH (08:09)
[2019-05-24] MEDS: CHOLECALCIFEROL 1,000 UNIT TABLET PO SCH (08:09)
[2019-05-24] MEDS: GLIMEPIRIDE 4 MG TABLET PO SCH (08:09)
[2019-05-24] MEDS: PANTOPRAZOLE 40 MG TABLET PO SCH (08:10)
[2019-05-24] MEDS: FUROSEMIDE 40 MG TABLET PO SCH (08:10)
[2019-05-24] MEDS: SERTRALINE 50 MG TABLET PO SCH (08:10)
[2019-05-24] MEDS: NEOMYCIN/POLYMYXIN/BACITRACIN OINT 0.9 GM PACK TOP SCH (08:10)
[2019-05-24] MEDS: amLODIPine 5 MG TABLET PO SCH (08:10)
[2019-05-24] MEDS: LORATADINE 10 MG TABLET PO SCH (08:10)
[2019-05-24] MEDS: DOCUSATE SODIUM 100 MG CAPSULE PO SCH (08:10)
[2019-05-24] MEDS: POTASSIUM CHLORIDE 10 MEQ TABLET PO SCH (08:10)
[2019-05-24] MEDS: LEVOFLOXACIN 500 MG TABLET PO SCH (08:10)
[2019-05-24] MEDS: BENZONATATE 100 MG CAPSULE PO SCH (08:10)
[2019-05-24] MEDS: GABAPENTIN 300 MG CAPSULE PO SCH (08:10)
[2019-05-24] MEDS: CHLORHEXIDINE 0.12% ORAL RINSE 60 ML BOTTLE SWISH/SPIT SCH (08:11)
[2019-05-24] MEDS: INSULIN NPH 100 UNIT/ML SUBCUT SCH (08:14)
[2019-05-24] MEDS ORDERED: INFLUENZA VIRUS VACCINE 0.5 ML SYRINGE IM ONE (09:00)
== END 2019-05-24 09:26 | disposition home health service (06) | DRG 234 ==
LOC: N.CL 11:01 → N.TELEN 14:24 → N.CVR 05-13 07:01 → N.TELES 05-14 09:56
PROVIDERS: ADMIT Internal Medicine Cardiovascular Disease; ATTEND Internal Medicine Cardiovascular Disease

== ENCOUNTER 2019-07-01 22:00 | Observation (INO) ==
[2019-07-01] MEDS ORDERED: DOCUSATE SODIUM 100 MG CAPSULE PO PRN (22:24)
[2019-07-01] MEDS ORDERED: ACETAMINOPHEN 325 MG TABLET PO PRN (22:24)
[2019-07-01] MEDS ORDERED: ONDANSETRON 4 MG/2 ML VIAL IV PRN (22:24)
[2019-07-02 00:04] LABS: Basophils # 0.1 10*3/uL (0.0-0.2); Basophils % 1.1 % (0.0-0.8); Eosinophils # 0.7 10*3/uL (0.0-0.87); Eosinophils % 7.2 % (0.00-10.9); Hematocrit 37.8 VOL% (35.7-47.0); Immature Granulocytes % 0.4 %; Immature Granulocytes Absolute 0.04 #; Lymphocytes # 3.1 10*3/uL (1.4-4.0); Lymphocytes % 31.5 % (21.3-54.2); Mean Corpuscular HGB Conc 31.7 GM/DL (32-36); Mean Corpuscular Volume 87.3 FL (87-102); Monocytes % 8.5 % (1.7-12.7); Neutrophils % 51.3 % (38.7-73.9); Platelet Count 217 T/CUMM (130-400); Red Blood Count 4.33 MC/CUMM (3.8-5.5); Red Cell Distribution Width 14.3 % (9.3-17.3); White Blood Count 9.7 T/CUMM (4-12)
[2019-07-02 00:11] LABS: Alanine Aminotransferase 37 U/L (13-56); Albumin 3.2 G/DL (3.4-5.0); Alkaline Phosphatase 76 U/L (45-117); Aspartate Amino Transferase 31 U/L (0-37); Bilirubin,Total < 0.39 MG/DL (0.2-1.0); Blood Urea Nitrogen 13 MG/DL (7-18); Calcium 8.3 MG/DL (8.5-10.1); Estimated Glom Filtration Rate 63 ML/MIN; Glucose 166 MG/DL (74-106); Osmolality,Calculated 284.3 MOS/KG (273-304); Total Protein 7.2 G/DL (6.4-8.3)
[2019-07-02 00:14] LABS: Troponin I 0.105 NG/ML (0.00-0.045)
[2019-07-02] MEDS: SODIUM CHLORIDE 0.9% 1,000 ML IV SCH ×2 (02:53→07:23)
[2019-07-02 03:14] LABS: Apearance,Urine CLEAR (Clear); Bilirubin,Urine Negative (Negative); Blood, Urine Negative (Negative); Glucose,Urine (UA) 50 mg/dL (Negative); Ketones,Urine Negative (Negative); Nitrite,Urine Negative (Negative); Protein,Urine Negative; RBC,Urine 1 /HPF (0-4); Squamous Epithelial Cell,Urine Occasional /HPF (0-10); Urine Color Yellow (Yellow); Urine Specific Gravity 1.016 (1.001-1.035); WBC,Urine 6 /HPF (0-6)
[2019-07-02] MEDS ORDERED: NITROGLYCERIN 2% OINT 1 INCH/GM PACK TOP ONE (05:07)
[2019-07-02] MEDS ORDERED: traMADol 50 MG TABLET PO PRN ×2 (05:07→05:30)
[2019-07-02] MEDS ORDERED: GLUCAGON 1 MG VIAL IM PRN ×2 (05:29→11:50)
[2019-07-02] MEDS ORDERED: DEXTROSE 50% 25 GM/50 ML VIAL IV PRN ×2 (05:29→11:50)
[2019-07-02] MEDS ORDERED: NITROGLYCERIN SL 0.4 MG TABLET SL PRN (05:30)
[2019-07-02] MEDS ORDERED: NON-FORMULARY MEDICATION (Levalbuterol Tartrate [Xopenex Hfa] 1 PUFF) INH PRN (05:30)
[2019-07-02 07:00] LABS: Risk Ratio 4.46
[2019-07-02] MEDS ORDERED: ALBUTEROL 2.5 MG/3 ML NEB RESP TX PRN (07:00)
[2019-07-02] MEDS ORDERED: METOPROLOL SUCCINATE XL 25 MG TABLET PO SCH (09:00)
[2019-07-02] MEDS ORDERED: PIOGLITAZONE 30 MG PO SCH (09:00)
[2019-07-02] MEDS: INSULIN REGULAR 100 UNIT/ML SUBCUT SCH ×4 (09:50→21:09)
[2019-07-02] MEDS: ASPIRIN CHEW 81 MG TABLET PO SCH (09:51)
[2019-07-02] MEDS: POTASSIUM CHLORIDE 10 MEQ TABLET PO SCH (09:51)
[2019-07-02] MEDS: GLIMEPIRIDE 4 MG TABLET PO SCH ×2 (09:51→21:08)
[2019-07-02] MEDS: FUROSEMIDE 20 MG TABLET PO SCH (09:52)
[2019-07-02] MEDS: GABAPENTIN 300 MG CAPSULE PO SCH ×2 (09:52→12:57)
[2019-07-02] MEDS: MAGNESIUM OXIDE 400 MG TABLET PO SCH ×2 (09:52→21:08)
[2019-07-02] MEDS: ENOXAPARIN 40 MG/0.4 ML SYRINGE SUBCUT SCH (09:52)
[2019-07-02] MEDS: PANTOPRAZOLE 40 MG TABLET PO SCH (09:52)
[2019-07-02] MEDS: SERTRALINE 50 MG TABLET PO SCH (09:53)
[2019-07-02] MEDS: METOPROLOL SUCCINATE XL 25 MG TABLET PO SCH (09:53)
[2019-07-02] MEDS: traMADol 50 MG TABLET PO SCH ×2 (12:52→21:08)
[2019-07-02] MEDS: GABAPENTIN 600 MG TABLET PO SCH ×2 (15:10→21:08)
[2019-07-02] MEDS: SIMVASTATIN 10 MG TABLET PO SCH (21:08)
[2019-07-02] MEDS: INSULIN NPH 100 UNIT/ML SUBCUT SCH (21:09)
[2019-07-03] MEDS: INSULIN REGULAR 100 UNIT/ML SUBCUT SCH ×4 (07:37→21:18)
[2019-07-03 07:59] LABS: Basophils # 0.1 10*3/uL (0.0-0.2); Basophils % 0.9 % (0.0-0.8); Eosinophils # 0.7 10*3/uL (0.0-0.87); Eosinophils % 8.1 % (0.00-10.9); Hematocrit 36.2 VOL% (35.7-47.0); Hemoglobin 11.3 GM/DL (12.0-16.0); Immature Granulocytes % 0.4 %; Immature Granulocytes Absolute 0.04 #; Lymphocytes # 3.2 10*3/uL (1.4-4.0); Lymphocytes % 35.7 % (21.3-54.2); Mean Corpuscular HGB Conc 31.2 GM/DL (32-36); Mean Corpuscular Volume 89.6 FL (87-102); Mean Platelet Volume 10.8 FL (9.6-12.0); Monocytes % 8.1 % (1.7-12.7); Neutrophils % 46.8 % (38.7-73.9); Platelet Count 198 T/CUMM (130-400); Red Blood Count 4.04 MC/CUMM (3.8-5.5); Red Cell Distribution Width 14.4 % (9.3-17.3); White Blood Count 8.9 T/CUMM (4-12)
[2019-07-03] MEDS: POTASSIUM CHLORIDE 10 MEQ TABLET PO SCH (08:19)
[2019-07-03] MEDS: ENOXAPARIN 40 MG/0.4 ML SYRINGE SUBCUT SCH (08:19)
[2019-07-03] MEDS: GABAPENTIN 600 MG TABLET PO SCH ×3 (08:20→21:16)
[2019-07-03] MEDS: PANTOPRAZOLE 40 MG TABLET PO SCH (08:20)
[2019-07-03] MEDS: traMADol 50 MG TABLET PO SCH ×2 (08:20→21:17)
[2019-07-03] MEDS: CLOPIDOGREL 75 MG TABLET PO SCH (08:21)
[2019-07-03] MEDS: MAGNESIUM OXIDE 400 MG TABLET PO SCH ×2 (08:21→21:16)
[2019-07-03] MEDS: METOPROLOL SUCCINATE XL 25 MG TABLET PO SCH (08:21)
[2019-07-03] MEDS: FUROSEMIDE 20 MG TABLET PO SCH (08:21)
[2019-07-03] MEDS: SERTRALINE 50 MG TABLET PO SCH (08:21)
[2019-07-03 08:22] LABS: Calcium 7.5 MG/DL (8.5-10.1); Osmolality,Calculated 284.8 MOS/KG (273-304)
[2019-07-03] MEDS: INSULIN NPH 100 UNIT/ML SUBCUT SCH ×2 (08:22→21:18)
[2019-07-03] MEDS: ASPIRIN CHEW 81 MG TABLET PO SCH (08:22)
[2019-07-03] MEDS: GLIMEPIRIDE 4 MG TABLET PO SCH ×2 (08:22→21:17)
[2019-07-03] MEDS: methylPREDNISolone 4 MG TABLET PO SCH ×3 (14:46→21:16)
[2019-07-03] MEDS: SIMVASTATIN 10 MG TABLET PO SCH (21:17)
[2019-07-04 06:29] LABS: Albumin 3.3 G/DL (3.4-5.0); Bilirubin,Total 0.6 MG/DL (0.2-1.0); Calcium 8.8 MG/DL (8.5-10.1); Total Protein 7.1 G/DL (6.4-8.3); Troponin I 0.028 NG/ML (0.00-0.045)
[2019-07-04] MEDS: INSULIN NPH 100 UNIT/ML SUBCUT SCH (09:40)
[2019-07-04] MEDS: GABAPENTIN 600 MG TABLET PO SCH (09:41)
[2019-07-04] MEDS: ENOXAPARIN 40 MG/0.4 ML SYRINGE SUBCUT SCH (09:41)
[2019-07-04] MEDS: METOPROLOL SUCCINATE XL 25 MG TABLET PO SCH (09:41)
[2019-07-04] MEDS: INSULIN REGULAR 100 UNIT/ML SUBCUT SCH ×2 (09:41→12:24)
[2019-07-04] MEDS: methylPREDNISolone 4 MG TABLET PO SCH ×2 (09:42→12:25)
[2019-07-04] MEDS: FUROSEMIDE 20 MG TABLET PO SCH (09:42)
[2019-07-04] MEDS: traMADol 50 MG TABLET PO SCH (09:42)
[2019-07-04] MEDS: GLIMEPIRIDE 4 MG TABLET PO SCH (09:42)
[2019-07-04] MEDS: SERTRALINE 50 MG TABLET PO SCH (09:42)
[2019-07-04] MEDS: PANTOPRAZOLE 40 MG TABLET PO SCH (09:42)
[2019-07-04] MEDS: ASPIRIN CHEW 81 MG TABLET PO SCH (09:42)
[2019-07-04] MEDS: MAGNESIUM OXIDE 400 MG TABLET PO SCH (09:42)
[2019-07-04] MEDS: POTASSIUM CHLORIDE 10 MEQ TABLET PO SCH (09:42)
[2019-07-04] MEDS: CLOPIDOGREL 75 MG TABLET PO SCH (09:42)
[2019-07-04 13:19] VITALS: BP 129/62
== END 2019-07-04 12:55 | disposition home or self-care (01) ==
LOC: N.TELEN
PROVIDERS: ADMIT Internal Medicine; ATTEND Internal Medicine